=== PATIENT | female | born 1975 | race Hispanic/Latino ===

== ENCOUNTER 2020-04-28 18:22 | Inpatient (IN) | payer SELFPAY ==
[~2020-04-28] VITALS: Ht 160 cm; Wt 74.0 kg
[2020-04-28 11:50] VITALS: BP 124/64
--- NOTE | 2020-04-28 18:35 | NUR ---
PT AMBULATED TO ROOM WITH STEADY GAIT.
[2020-04-28] MEDS ORDERED: GLIMEPIRIDE2 MG PO (18:54)
--- NOTE | 2020-04-28 19:05 | NUR ---
A/OX3 W/P/D SKIN MAEW NSR NO ST T CHANGES NO ECTOPY.SPEECH CLEAR NO FOCAL DEFICITS. DENIES VISION LOSS
[2020-04-28 19:24] LABS: HEMATOCRIT 42.2 % (37.0-47.0); HEMOGLOBIN 13.9 g/dl (12.0-16.0); IMMATURE GRANULOCYTES 0.3 % (0.0-5.0); MEAN CELL VOLUME 89.8 fL CALC (80.0-100.0); MEAN CORPUSCULAR HGB 29.6 pG CALC (26.0-32.0); MEAN CORPUSCULAR HGB CONC 32.9 g/dL CAL (32.0-36.0); NEUT# 5.95 thou/uL (2.00-7.15); RED BLOOD COUNT 4.7 mill/uL (4.20-5.60); RED CELL DISTRI WIDTH 11.6 % (11.5-15.5)
[2020-04-28 19:28] LABS: URINE BILIRUBIN - DIPSTICK NEGATIVE (NEGATIVE); URINE BLOOD DIPSTICK NEGATIVE (NEGATIVE); URINE COLOR YELLOW; URINE GLUCOSE - DIPSTICK NEGATIVE (NEGATIVE); URINE KETONE NEGATIVE (NEGATIVE); URINE LEUK ESTERASE NEGATIVE (NEGATIVE); URINE NITRITE - DIPSTICK NEGATIVE (Negative); URINE PROTEIN - DIPSTICK NEGATIVE (NEG-TRACE); URINE SPECIFIC GRAVITY >=1.030; URINE UROBILINOGEN - DIPSTICK 0.2 E.U./dL (0.2)
[2020-04-28 19:43] LABS: ACT PARTIAL THROMBO TIME 24.9 SECONDS (20.0-32.5); PROTHROMBIN TIME 10.4 SECONDS (9.0-12.5)
[2020-04-28 19:45] LABS: ALBUMIN 4.4 g/dL (3.2-5.0); ALKALINE PHOSPHATASE 104 u/l (38-126); ANION GAP 13 (6-22 (CALC)); BILIRUBIN, TOTAL 0.4 mg/dL (0.0-1.4); BUN 12 mg/dL (7-17); BUN/CREATININE RATIO 24 (12-20 (CALC)); C-REACTIVE PROTEIN < 0.5 mg/dL (0-0.9); CARBON DIOXIDE 26 mmol/l (22-30); CHLORIDE 104 mmol/l (95-108); CREATININE 0.5 mg/dL (0.5-1.0); GFR > 60 ML/MIN (>=60 (CALC)); GFR FOR AFR.AMER. > 60 ML/MIN (>=60 (CALC)); POTASSIUM 4.3 mmol/l (3.5-5.1); SGOT/AST 34 u/l (14-36); SODIUM 139 mmol/l (137-146); TOTAL PROTEIN 8.5 g/dL (6.3-8.2)
--- NOTE | 2020-04-28 20:22 | NUR ---
[facility] REMAINS UNCHANGED AT 15 NO FOCAL WEAKNESS SPEECH IS CLEAR
--- NOTE | 2020-04-28 21:50 | NUR ---
PT REPORT TO YAYA KENT ON MS
--- NOTE | 2020-04-28 21:55 | NUR ---
A/O X3 NO FOCAL DEFICITS SPEECH CLEAR [facility]CS UNCHANGED AT 15.PT IS EATING A MEAL PROVIDED BY HER F VISITOR PT TRANSPORTTED TO MS RM 282 ON TELE IN STABLE CONDITION
[2020-04-28 21:59] VITALS: BP 154/81
--- NOTE | 2020-04-28 22:00 | NUR ---
PT RECEIVED FROM ED TO ROOM 282. ARRIVES VIA STRETCHER ACCOMPANIED BY QUIN, RN. PT AMBULATORY TO BED. GAIT STEADY AND BALANCED. PT DENIES PAIN AT THIS TIME. ORIENTED TO UNIT, ROOM, CALL CORRIGAN, LIGHTS, TV. ICE WATER PROVIDED. CALL CORRIGAN WITHIN REACH. AGREES TO CALL PRN.
--- NOTE | 2020-04-28 22:15 | NUR ---
ASSESSMENT AND VITALS COMPLETED AT THIS TIME. RESPIRATIONS ARE EVEN AND UNLABORED STAT 98% ON RA. NO SIGNS OF DISTRESS. HEART RHYTHM IS NORMAL WITH TELE IN PLACE. BOWEL SOUNDS ARE ACTIVE IN ALL QUADRANTS. RADIAL AND PEDAL PULSES ARE STRONG WITH NORMAL CAPILLARY REFILL. SKIN IS INTACT. PT IS USING THE RESTROOM WITH 1 ASSIST. PT STATES SHE HAS NUMBNESS IN HER LEFT CHEST AREA, SHOULDER AND AROUND HER LIPS. PT STATE NUMBNESS HAS GOTTEN PROGRESSIVELY WORSE IN THE LAST 3 DAYS. PT DENIES ANY PAIN IN THESE AREAS BUT C/O OF A LIGHT HEADACHE. NEURO ASSESMENT GIVEN; PT DENIES ANY VISUAL LOSE. SPEECH IS CLEAR. PT HAS STEADY GAIT.OR ADDITIONAL NEEDS AT ALL SAFETY PRECAUTIONS ARE IN PLACE WITH CALL LIGHT IN REACH. WILL CONTINUE TO MONITOR. INTERPETATION VIA ED PERSONNEL VIA PHONE TO PTS ROOM.
--- NOTE | 2020-04-28 22:15 | NUR ---
PT IS SPANISHING SPEAKING ONLY AND IN A PRECAUTION ROOM. STAFF MEMBER ZENA LAN INTERPRETED VIA TELEPHONE DIRECT TO THE PTS ROOM. ZENA WAS PROVIDED A COMPLETE LIST OF ADMISSION QUESTION. FURTHER ADITIONAL QUESTIONS CONCERNING ANY NEEDS THE PT MIGHT REQUIRE WERE ADDRESSED. PT STATED [facility]EDS WERE MET VIA THE HOUSEMAID.
--- NOTE | 2020-04-29 00:06 | NUR ---
PT LAYING IN BED WITH EYES CLOSED, APPEARS TO BE SLEEPING, APPEARS COMFORTABLE AND IN NO DISTRESS. RESPIRATIONS REGULAR AND UNLABORED. ITEMS REMAIN WITHIN REACH, CALL CORRIGAN REMAINS WITHIN REACH. BED REMAINS LOCKED AND IN LOW POSITION WITH BEDRAILS UP X2. WILL CONTINUE TO MONITOR.
[2020-04-29 04:00] VITALS: BP 123/73
--- NOTE | 2020-04-29 04:46 | NUR ---
PT RESTING IN BED, NO SIGNS OF DISTRESS NOTED, RESP EVEN AND UNLABORED. PT VOICES NO NEEDS OR COMPLAINTS AT THIS TIME. CALL LIGHT IN REACH,CONTINUE TO MONITOR.
--- NOTE | 2020-04-29 07:40 | NUR ---
PT SITTING IN BED NO SIGNS OF DISTRESS NOTED, RESP EVEN AND UNLABORED. PT ALERT AND ORIENTED X3, DISCUSSED POC, NOTED L SIDED WEAKNESS, L SIDED FACIAL DROOP, NIH SCALE 2, ASSESSMENT COMPLETED, VITALS WNL, BREAKFAST PROVIDED, CALL LIGHT IN REACH,CONTINUE TO MONITOR.
[2020-04-29 07:42] VITALS: BP 120/80
[2020-04-29 11:02] VITALS: BP 144/85
--- NOTE | 2020-04-29 11:30 | NUR ---
PT SWABBED FOR COVID AND FLU, TOLERATED WELL. CALL LIGHT IN REACH,CONTINUE TO MONITOR.
[2020-04-29 15:14] VITALS: BP 138/78
--- NOTE | 2020-04-29 19:30 | NUR ---
1930-Pt lying in bed at time of assessment. No s/s of distress. Pt does have left-sided facial weakness. She is alert. No strength deficits in extremities. Bed low and locked. Call light and phone within reach. Pt stable. Will continue to monitor.
[2020-04-29 20:00] VITALS: BP 134/71
--- NOTE | 2020-04-29 23:45 | NUR ---
2345-Pt lying in bed. No s/s of distress. Denies pain. Neurological status is stable. No changes at this time. Bed low and locked. Call light and phone within reach. Pt stable, will continue to monitor.
[2020-04-30] VITALS: BP 121/70
[2020-04-30 04:00] VITALS: BP 132/79
--- NOTE | 2020-04-30 04:40 | NUR ---
0440-Pt lying in bed awake. No s/s of distress. Denies pain. Her neuro exam is unremarkable. She seems tired. Bed low and locked. Call light and phone within reach. Pt stable. Will continue to monitor.
[2020-04-30 08:00] VITALS: BP 121/70
--- NOTE | 2020-04-30 08:00 | NUR ---
ASSESSMENT IS COMPLTED: IV SITE IS FREE FROM REDNESS OR EDEMA. HR IS REG, PULSES ARE STRONG X4, ABD IS SOFT WITH ACTIVE BS. TELE MONITOR INPLACE. BREATH SOUNDS ARE CLEAR, BILATERALLY
--- NOTE | 2020-04-30 08:47 | NUR ---
Rehab screening: Patient would benefit from OT/PT and ST consults if medical agrees
--- NOTE | 2020-04-30 11:09 | NUR ---
PER SPEECH THERAPY REQUESTING TO HAVE STAFF CHECK PT'S MOUTH. AFTER MEALS
[2020-04-30 11:15] VITALS: BP 134/66
--- NOTE | 2020-04-30 12:35 | NUR ---
DOCUMENTED TIME :1435 MEANT TO BE 1235. PT IS RELAXING IN THE ROOM NO DISTRESS NOTED. IV SITE IS FREE FROM REDNESS OR EDEMA. CONTINUE TO OSBERVE AND MONITOR.
--- NOTE | 2020-04-30 15:00 | NUR ---
PT WENT FOR AN MRI
--- NOTE | 2020-04-30 15:47 | NUR ---
PT IS RETURNING FROM MRI.
--- NOTE | 2020-04-30 16:40 | NUR ---
PT IS RELAXING IN BED WITH NO DISTRESS NOTED. IV SITE IS FREE FROM REDNESS OR EDEMA.
[2020-04-30 19:38] VITALS: BP 120/76
--- NOTE | 2020-04-30 20:35 | NUR ---
PT AWAKE AND UPRIGHT IN THE BED. REPORTS FEELING BETTER. NEURO'S ASSESSED, L.SIDED FACIAL DROOP AND UNEVEN BROW/NO MOVEMENT TO L.BROW. NON PROFIT DIRECTOR IS EQUAL AND NO DRIFT TO EITHER EXTREMITY. BLE EQUAL WITHOUT DRIFT. STRONG PEDAL PULSES. PT DENIES ANY NEEDS AT THIS TIME. ENCOURAGED PT TO CALL NEEDS ARISE, VERBALIZED UNDERSTANDING.
--- NOTE | 2020-04-30 22:15 | NUR ---
CONTACTED [facility] TO INQUIRE WHEN CAROTID US AND ECHO COULD BE COMPLETED, TECH INFORMED ME THAT THEY SHOULD BE DONE TOMORROW ON THE .
[2020-04-30 23:28] VITALS: BP 137/77
--- NOTE | 2020-05-01 00:05 | NUR ---
PT SLEEPING, DID NOT AWAKE TO MY ENTERING ROOM. NO S/O DISTRESS NOTED AT THIS TIME.
--- NOTE | 2020-05-01 05:05 | NUR ---
UNHAIRING INSPECTOR OBTAINING V/S, NEURO'S REMAIN INTACT WITH PARTIAL PARALYSIS TO FACE, LEFT SIDED MOUTH DROOP VISUALIZED AND L.BROW NO MOVEMENT. PT DENIES ANY DISTRESSES AT THIS TIME. CALL LIGHT W/IN REACH AND PT ENCOURAGED TO CALL.
[2020-05-01 05:20] VITALS: BP 120/71
[2020-05-01 07:45] VITALS: BP 151/80
--- NOTE | 2020-05-01 07:45 | NUR ---
ASSESSMENT IS COMPLETED: IV SITE IS FREE FROM REDNESS OR EDEMA. HR IS REG,PULSES ARE STRONG X4, ABD IS SOFT WITH ACTIV EBS. BREATH SOUNDS ARE CLEAR BILATERALLY. NO C/O SOB. TELE MONITOR IN PLACE. CONTINUE TO OSBERVE AND MONITOR.
[2020-05-01] MEDS ORDERED: PREDNISONE10 MG PO (10:03)
[2020-05-01] MEDS ORDERED: VALTREX500 MG PO (10:03)
[2020-05-01 11:33] VITALS: BP 119/81
--- NOTE | 2020-05-01 12:00 | NUR ---
PT IS RELAXING ON THE COUCH. NO DISTRESS NOTED. IV SITE IS FREE FROM REDNESS OR EDEMA.
--- NOTE | 2020-05-01 13:05 | NUR ---
IV SITE DISCONTINUED CATHETER INTACT. NO REDNESS OR EDEMA. DISCHARGE INSTRUCTIONS GIVEN AND VERBALIZED UNDERSTANDING. INTERPRETED BY JAKOB JAVIER
== END 2020-05-01 13:10 | disposition home or self-care (01) | DRG 74 ==
LOC: ED 18:22 → ED-I 20:48 → ED 21:05 → MS2 21:06
PROVIDERS: ADMIT Internal Medicine; ATTEND Internal Medicine
DX: G51.0 Bell's palsy (principal); E11.9 Type 2 diabetes mellitus without complications; R76.8 Other specified abnormal immunological findings in serum; Z79.84 Long term (current) use of oral hypoglycemic drugs; Z20.828 Contact with and (suspected) exposure to other viral communicable diseases

== ENCOUNTER 2022-08-29 17:50 | Emergency (ER) | payer SELFPAY ==
[~2022-08-29] VITALS: Ht 160 cm; Wt 64.2 kg
[2022-08-29] VITALS (9 sets, daily range): BP systolic 124–145; BP diastolic 78–101
[~2022-08-29 17:50] MED LIST: GLIMEPIRIDE2 MG PO; PREDNISONE10 MG PO; VALTREX500 MG PO
[2022-08-29] MEDS ORDERED: METFORMIN HCL500 M1 PO (18:34)
[2022-08-29] MEDS ORDERED: TAM75CAP PO (20:00)
== END 2022-08-29 20:19 | disposition home or self-care (01) | DRG 153 ==
LOC: ED 17:50
DX: J11.1 Influenza due to unidentified influenza virus with other respiratory manifestations (principal); E11.9 Type 2 diabetes mellitus without complications; Z79.84 Long term (current) use of oral hypoglycemic drugs; Z20.822 Contact with and (suspected) exposure to COVID-19

== ENCOUNTER 2024-06-24 11:34 | Emergency (ER) | payer SELFPAY ==
[~2024-06-24] VITALS: Ht 160 cm; Wt 57.0 kg
[~2024-06-24 11:34] MED LIST changes: +METFORMIN HCL500 M1 PO; +TAM75CAP PO
[2024-06-24] MEDS ORDERED: IBUPROFEN 200 MG/TAB PO ONE (12:10)
[2024-06-24] MEDS ORDERED: ACETAMINOPHEN 500 MG TAB PO ONE (12:10)
[2024-06-24] MEDS ORDERED: KETOROLAC TROMETHAMINE 30 MG/ML SDV IM ONE (13:00)
[2024-06-24 13:21] VITALS: BP 112/80
== END 2024-06-24 13:28 | disposition home or self-care (01) | DRG 195 ==
LOC: ED 11:34
DX: J10.1 Influenza due to other identified influenza virus with other respiratory manifestations (principal); E11.9 Type 2 diabetes mellitus without complications; Z20.822 Contact with and (suspected) exposure to COVID-19